=== PATIENT | male | born 1950 | race Caucasian/White ===

== ENCOUNTER → 2017-04-14 | Outpatient (CLI) | payer MEDICARE, OTHER | END | disposition home or self-care (01) | LOC: GMAH 10:03 | PROVIDERS: ATTEND Family Medicine | DX: Z12.5 Encounter for screening for malignant neoplasm of prostate (principal); E78.2 Mixed hyperlipidemia | CPT/HCPCS: 84443; 84550; G0103 ==

== ENCOUNTER → 2017-10-13 | Outpatient (CLI) | payer MEDICARE, OTHER | END | disposition home or self-care (01) | LOC: GMAH 10:51 | PROVIDERS: ATTEND Family Medicine | DX: Z12.5 Encounter for screening for malignant neoplasm of prostate (principal) ==

== ENCOUNTER → 2018-08-03 | Outpatient (CLI) | payer MEDICARE, OTHER | LOC: GMAH 11:00 | PROVIDERS: ATTEND Family Medicine | DX: I10 Essential (primary) hypertension (principal); E78.2 Mixed hyperlipidemia; Z12.5 Encounter for screening for malignant neoplasm of prostate | CPT/HCPCS: 84443; 84550; G0103 ==

== ENCOUNTER → 2018-09-02 | Outpatient (CLI) | payer MEDICARE, OTHER ==
--- NOTE | 2018-09-02 12:53 | CT ---
EXAM DESCRIPTION: CTA Runoff: Computed Tomography. CLINICAL HISTORY: ESSENTIAL HYPERTENSION. Bilateral cold sensation in feet and numbness, right more than left. COMPARISON: Ultrasound carotid duplex examination December 2014. CT scan of the abdomen February 2007. TECHNIQUE: CT angiography of the abdominal aorta and both lower extremities is performed during rapid bolus administration of IV contrast media. Three-dimensional volume-rendering imaging is reviewed along with 2.5 x 2.5 mm source images, and 2 x 2 mm coronal and sagittal reformats. Total Exam DLP: 1453.21 mGy-cm. This exam was performed according to our departmental CT dose-optimization program which includes automated exposure control, adjustment of the mA and/or kV according to patient size and/or use of iterative reconstruction technique; to reduce radiation dose to as low as reasonably achievable (ALARA). FINDINGS: Upper abdominal aorta: Minimal atherosclerotic calcification of the ostia of the celiac trunk with no poststenotic dilation. Minimal calcification in the splenic artery. Origin of the SMA is unremarkable. Mid-abdominal aorta: Bilateral single renal arteries with minimal calcification of the ostia. No poststenotic dilation. Distal abdominal aorta: A second channel may be beginning to form on the anterior right aspect including the origin of the KARLA which contains calcific contrast. Overall with the aorta is 2.3 cm at this level with the true lumen 1.4 cm. Intimal wall thickening from the intrarenal segment to this segment. No para-aortic mass. Common iliacs: Bilateral intimal wall thickening and atherosclerotic calcification predominantly on the right with minimal narrowing of the lumen and moderate caliber 11 mm. Bilateral atherosclerotic calcification at the bifurcation. Internal iliacs: Atherosclerotic calcification proximally with no significant narrowing. EIAs: Bilaterally unremarkable. Right QUANTITATIVE ANALYST MARKETING: Minimal atherosclerotic calcification and intimal wall thickening. Bilateral SFAs: Bilaterally unremarkable except for small atherosclerotic narrowing of the right vessel at the junction of the middle and distal third. Moderate narrowing and more calcification on the left at the junction of the middle and distal third. Popliteals: Unremarkable. Bilateral trifurcation vessels: Good runoff into the proximal vessels bilaterally and fair-good runoff of the bilateral posterior tibial arteries in the foot and ankle bilaterally. Bilateral peroneal arteries terminate at the usual level just above the ankle mortise. Left QUANTITATIVE ANALYST MARKETING: Focal region of moderate atherosclerotic calcification and narrowing. Other: Possible fatty liver and minimal enlargement. Minimal colonic constipation throughout the entire length. Calcifications in the prostate gland, which is impressing on the posterior base of the urinary bladder. IMPRESSION: 1. Scattered atherosclerotic disease from the superior abdominal aorta to the popliteal segment. Possible beginning of a second lumen in the inferior abdominal aorta at the level of the KARLA origin. No obstruction or aneurysm, or contrast extravasation or soft tissue mass. Fair to good runoff of contrast bilaterally into the dorsum and plantar surfaces of the proximal feet. No significant atherosclerotic occlusive disease seen on this exam. 2. Possible fatty liver and minimal hepatomegaly. Minimal colonic obstipation throughout the entire length. Calcifications and enlargement of the prostate gland which is impressing on the urinary bladder. Electronically signed by: Rick Grey MD 09/02/2018 12:51 PM PULMONOLOGIST INTENSIVIST
== END ==
LOC: CT 08:00
PROVIDERS: ATTEND Family Medicine
DX: I10 Essential (primary) hypertension (principal); E78.2 Mixed hyperlipidemia; E11.9 Type 2 diabetes mellitus without complications; R68.89 Other general symptoms and signs; I70.0 Atherosclerosis of aorta; N40.0 Benign prostatic hyperplasia without lower urinary tract symptoms

== ENCOUNTER 2018-12-31 16:38 | Emergency (ER) | payer MEDICARE, OTHER ==
[2018-12-31] MEDS ORDERED: ASPIRIN TABLET 325 MG TAB ONE (16:43)
[2018-12-31 16:49] VITALS: TEMP 97.9
[2018-12-31] MEDS ORDERED: NITROGLYCERIN 0.4 MG 25 EA TAB SL ONE ×2 (16:50→16:52)
[2018-12-31] MEDS ORDERED: ASPIRIN (ENTERIC COATED) 325 MG TAB PO ONE (16:50)
[2018-12-31] MEDS ORDERED: MORPHINE SULFATE INJ 10 MG/ML VIAL IV ONE (16:56)
--- NOTE | 2018-12-31 17:14 | RAD ---
EXAM DESCRIPTION: Chest,1 View CLINICAL HISTORY: chest pain with activity COMPARISON: 04 August 2007 TECHNIQUE: AP portable chest FINDINGS: The lungs are clear. There is no infiltrate or effusion. The heart is normal size. IMPRESSION: Normal portable chest Electronically signed by: Brian De Jesus MD 12/31/2018 5:11 PM CDT
[2018-12-31] MEDS ORDERED: METOPROLOL TARTRATE 50 MG TAB PO ONE (17:15)
[2018-12-31] MEDS ORDERED: NITROGLYCERIN/D5W IV 250 ML IVS ONE (17:24)
[2018-12-31] MEDS ORDERED: NITROGLYCERIN/D5W IV 50,000 MCG in PREMIX BOTTLE 1 BOTTLE IVS SCH (17:30)
[2018-12-31] MEDS ORDERED: ENOXAPARIN SODIUM 100 MG/ML SYG SUBCU ONE (17:36)
--- NOTE | 2018-12-31 18:15 | ED.PDOC ---
History of Present Illness - General Chief Complaint: Chest Pain/AR Stated Complaint: chest pain Time Seen by Provider: 12/31/18 16:42 Source: patient Exam Limitations: no limitations - History of Present Illness Initial Comments: The patient is a 68-year-old male presenting to emergency room secondary to severe chest pain with any aerobic activity this morning. Going back over the patient's history over the past few months it is likely that he has had some angina with aerobic activity over the last few months just much less severe. No definite history of any coronary artery disease but he does have a history of hypertension. He reports taking his medications. Systolic blood pressures are in the 220s upon arrival here. It takes about 10 minutes of rest before his chest pain resolves. Chest pain has come and gone all day pending on his activity level. He was mildly diaphoretic when I saw him. Lungs are clear. No chest wall tenderness to palpation and no reflux symptoms. Timing/Duration: other - 8 hours intermittent Severity: severe Improving Factors: rest Worsening Factors: other - aerobic activity Associated Symptoms: chest pain, shortness of breath Allergies/Adverse Reactions: Allergies Codeine Allergy (Verified 06/14/16 11:19) Dopamine Allergy (Verified 12/31/18 16:49) Home Medications: Ambulatory Orders Aspirin [Aspirin Childrens] 81 mg PO BEDTIME 06/14/16 Cinnamon 1,000 mg PO BEDTIME 06/14/16 Coenzyme O41-Kcojywb E [Coq10 St-100 100-100 mg-Unit] 1 cap PO DAILY 06/14/16 Gemfibrozil 600 mg PO BID 06/14/16 Losartan Potassium 50 mg PO BID 06/14/16 Metformin HCl 500 mg PO BID 06/14/16 Metoprolol Succinate [Metoprolol Succinate ER] 50 mg PO BID 06/14/16 Omeprazole 10 mg PO MITZY-OTH-DAY 06/14/16 Simvastatin 20 mg PO BEDTIME 06/14/16 Tamsulosin [Flomax] 0.4 mg PO BEDTIME 06/14/16 Amlodipine Besylate 10 mg PO DAILY 12/31/18 Glucosamine-Chondroitin [Osteo Bi-Flex Regular Str 250-200 mg] 1 tab PO BID 12/31/18 Multiple Vitamins W/ Minerals [One-A-Day Proactive 65+] 1 tab PO BID 12/31/18 Review of Systems - Review of Systems Constitutional: States: no symptoms reported EENTM: States: no symptoms reported Respiratory: States: short of breath Cardiology: States: chest pain Gastrointestinal/Abdominal: States: no symptoms reported Genitourinary: States: no symptoms reported Musculoskeletal: States: no symptoms reported Skin: States: no symptoms reported Neurological: States: no symptoms reported Endocrine: States: no symptoms reported All other Systems: No Change from Baseline Past Medical History (General) - Patient Medical History Hx Stroke: No Hx Congestive Heart Failure: No Hx Hypertension: Yes Hx Diabetes: Yes Hx MRSA: No Surgical History: cholecystectomy - Vaccination History Hx Influenza Vaccination: No Hx Pneumococcal Vaccination: Yes - Social History Hx Tobacco Use: Yes Family Medical History - Family History Father Family History: Unknown Living Status: Cause of : Mulitple Myeloma Hx Family Cancer: Yes Hx Family;Other: Mom with Lung CA Physical Exam - Physical Exam General Appearance: Alert, Anxious, Other - diaphoretic initially Eye Exam: bilateral normal Ears, Nose, Throat: hearing grossly normal, normal ENT inspection Neck: full range of motion, supple Respiratory: lungs clear, normal breath sounds, no respiratory distress, no accessory muscle use Cardiovascular/Chest: normal peripheral pulses, regular rate, rhythm, no edema Peripheral Pulses: radial,right: 2+, radial,left: 2+, dorsalis pedis,right: 2+, dorsalis pedis,left: 2+ Gastrointestinal/Abdominal: non tender, soft Rectal Exam: deferred Back Exam: no CVA tenderness, no vertebral tenderness Extremity: non-tender, normal inspection, no pedal edema, normal capillary refill 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 tested, alert, normal mood/affect, oriented x 3 Skin Exam: normal color, diaphoresis Comments: Vital Signs - 24 hr 12/31/18 12/31/18 12/31/18 16:45 16:58 16:59 Temperature 97.9 F Pulse Rate 75 Pulse Rate [ 75 75 Left Brachial] Respiratory 20 Rate Blood Pressure 219/98 [Left Arm] O2 Sat by Pulse 99 Oximetry 12/31/18 17:44 Temperature Pulse Rate Pulse Rate [ 67 Left Brachial] Respiratory 16 Rate Blood Pressure 169/77 [Left Arm] O2 Sat by Pulse 98 Oximetry Progress - Progress Progress: 12/31/18 18:18 the patient is a 68-year-old male presenting with what appears to be unstable angina and hypertensive emergency. Initial troponin is not elevated. EKG does not show definitive ST segment changes. The patient has responded well to metoprolol and nitroglycerin as far as reducing his chest pain and blood pressure. He is resting fairly comfortably at this point. He did receive a dose of Lovenox and aspirin. For now I'm going to hold on the Plavix. 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 Acceptance is appreciated. Critical care time for unstable angina and hypertensive emergency excluding otherwise Billable procedures is 40 minutes. - Results/Orders Results/Orders: EKG shows normal sinus rhythm at 81 bpm.normal axis. Normal QT interval. I believe the leads V2 and V3 are reversed. He does appear to have a right bundle branch block. There is possibly a Q-wave in lead 3. No definitive ST segment or T-wave changes. Chest x-ray appears benign. Laboratory Results - last 24 hr 12/31/18 12/31/18 12/31/18 16:52 16:52 16:52 WBC 5.1 RBC 4.55 L Hgb 14.0 Hct 40.2 L MCV 88.2 MCH 30.8 MCHC 35.0 RDW 13.8 Plt Count 249 MPV 8.7 Absolute Neuts (auto) 2.80 Absolute Lymphs (auto) 1.70 Absolute Monos (auto) 0.40 Absolute Eos (auto) 0.20 Absolute Basos (auto) 0.10 Neutrophils % 54.1 Lymphocytes % 33.8 Monocytes % 7.3 Eosinophils % 3.0 Basophils % 1.8 PT 10.5 INR 1.05 PTT (SP) 24.7 Sodium 139 Potassium 3.6 Chloride 108 Carbon Dioxide 18 L Anion Gap 16.6 BUN 17 Creatinine 0.76 BUN/Creatinine Ratio 22.4 H Random Glucose 110 H Serum Osmolality 279.7 Calcium 9.1 Total Bilirubin 0.6 AST 27 ALT 34 Alkaline Phosphatase 60 Creatine Kinase 236 H* CK-MB (CK-2) 4.2 CK-MB (CK-2) % 1.78 Troponin I < 0.02 B-Natriuretic Peptide 28.1 Serum Total Protein 7.8 Albumin 4.4 Globulin 3.4 Albumin/Globulin Ratio 1.3 Departure - Departure Clinical Impression: Hypertensive emergency, Unstable angina Disposition: Transfer to Hospital Condition: Serious Departure Forms: ED Discharge - Pt. Copy, Patient Portal Self Enrollment Referrals: Gio Ellis MD [Primary Care Provider] - 1-2 Weeks Home Medications: Ambulatory Orders Aspirin [Aspirin Childrens] 81 mg PO BEDTIME 06/14/16 Cinnamon 1,000 mg PO BEDTIME 06/14/16 Coenzyme D97-[id number] E [Coq10 St-100 100-100 mg-Unit] 1 cap PO DAILY 06/14/16 Gemfibrozil 600 mg PO BID 06/14/16 Losartan Potassium 50 mg PO BID 06/14/16 Metformin HCl 500 mg PO BID 06/14/16 Metoprolol Succinate [Metoprolol Succinate ER] 50 mg PO BID 06/14/16 Omeprazole 10 mg PO MITZY-OT-DAY 06/14/16 Simvastatin 20 mg PO BEDTIME 06/14/16 Tamsulosin [Flomax] 0.4 mg PO BEDTIME 06/14/16 Amlodipine Besylate 10 mg PO DAILY 12/31/18 Glucosamine-Chondroitin [Osteo Bi-Flex Regular Str 250-200 mg] 1 tab PO BID 12/31/18 Multiple Vitamins W/ Minerals [One-A-Day Proactive 65+] 1 tab PO BID 12/31/18 Transfer to Outside Facility - Transfer Information Accepting Provider:: dr armstrong Accepting Facility: [place] Reason for Transfer: required specialist not available
[2018-12-31 18:44] VITALS: BP 153/66; O2SAT 97
== END 2018-12-31 18:44 | disposition short-term general hospital (02) ==
LOC: ER 16:38
DX: I16.1 Hypertensive emergency (principal); I20.0 Unstable angina; R06.02 Shortness of breath; E11.9 Type 2 diabetes mellitus without complications; Z79.84 Long term (current) use of oral hypoglycemic drugs; Z79.899 Other long term (current) drug therapy; Z87.891 Personal history of nicotine dependence; Z79.82 Long term (current) use of aspirin
CPT/HCPCS: 71045; 80053; 82550; 82553; 83880; 84484; 85025; 85610; 85730; 93005; J1650; J2270

== ENCOUNTER → 2019-03-23 | Outpatient (CLI) | payer MEDICARE, OTHER | LOC: GMAH 10:58 | PROVIDERS: ATTEND Family Medicine | DX: E78.2 Mixed hyperlipidemia (principal); I10 Essential (primary) hypertension ==

== ENCOUNTER 2019-05-09 09:52 | Observation (INO) | payer MEDICARE, OTHER ==
--- NOTE | 2019-05-09 10:13 | ED.PDOC ---
History of Present Illness - General Chief Complaint: Chest Pain/MN Stated Complaint: Chest pain, SOB since Friday Time Seen by Provider: 05/09/19 10:06 Source: patient, family Exam Limitations: no limitations - History of Present Illness Initial Comments: patient comes in today with chest pain that started on Friday. 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 He was told he had 5 vessels were blocked and they repaired 3 of them. Since then he's been doing fairly well with an occasional episode of angina and the last with a did result in transfer with no evidence of blockage or acute MN. This episode started during pulmonary rehabilitation on Friday. Patient states the chest pain has been there pretty consistently since then although intermittently gets worse. Currently he's had this specific pressure-like chest pain since last night before going to bed that kept him up most of the night. Patient states the pain is pressure like at times does radiate to his neck but primarily just stays on his chest is much worse with deep inspiration. He's had some weakness and chills last night but denies any cough, nasal congestion, fever, or sore throat. Patient states this does not feel like his angina prior to his MN and nitroglycerin 2 at home this morning made no difference in the pain. Patient otherwise has a past medical history of hyperlipidemia, hyperthyroidism secondary to atrial fibrillation medication, coronary artery disease, diabetes. Patient has no past history of asthma or emphysema he smokes when he was young man but quit more than 40 years ago. Patient is currently on Plavix since his bypass. Timing/Duration: 7-24 hours Severity/Quality: mild, pressure Location: substernal Chest Pain Radiation: neck Activities at Onset: activity Prior Chest Pain/Cardiac Workup: heart attack Improving Factors: nothing Worsening Factors: other - deep inspiration Nitro Today/Relief: 0.4 mg x 2, provided at home, no relief Aspirin Treatment Today: 325 mg x 1, provided at home Associated Symptoms: fatigue, fever/chills Allergies/Adverse Reactions: Allergies Codeine Allergy (Verified 06/14/16 11:19) Dopamine Allergy (Verified 12/31/18 16:49) Isosorbide Nitrate Allergy (Verified 05/09/19 10:14) Home Medications: Ambulatory Orders Aspirin [Aspirin Childrens] 81 mg PO BEDTIME 06/14/16 Cinnamon 1,000 mg PO BEDTIME 06/14/16 Coenzyme Z22-Perqror E [Coq10 St-100 100-100 mg-Unit] 1 cap PO DAILY 06/14/16 Losartan Potassium 50 mg PO BID 06/14/16 Metformin HCl [Metformin Hydrochloride] 500 mg PO BID 06/14/16 Omeprazole 10 mg PO MITZY-OTH-DAY 06/14/16 Tamsulosin [Flomax] 0.4 mg PO BEDTIME 06/14/16 Glucosamine-Chondroitin [Osteo Bi-Flex Regular Str 250-200 mg] 1 tab PO BID 12/31/18 Multiple Vitamins W/ Minerals [One-A-Day Proactive 65+] 1 tab PO BID 12/31/18 Atorvastatin Calcium 40 mg PO DAILY 05/09/19 Carvedilol 6.25 mg PO BID 05/09/19 Cetirizine-Pseudoephedrine [Zyrtec-D Allergy/Congesti] 1 tab PO BID 05/09/19 Clopidogrel Bisulfate 75 mg PO DAILY 05/09/19 Hydrochlorothiazide 25 mg PO DAILY 05/09/19 Nitroglycerin 0.4 mg Tab [Nitrostat] 0.4 mg SL PRN PRN 05/09/19 Review of Systems - Review of Systems Constitutional: States: chills, weakness. Denies: fever, malaise EENTM: States: no symptoms reported. Denies: blurred vision, ear discharge, nose congestion, throat pain Respiratory: States: short of breath. Denies: cough, wheezing Cardiology: States: chest pain. Denies: edema, palpitations, syncope Gastrointestinal/Abdominal: States: no symptoms reported. Denies: abdominal pain, constipation, diarrhea, nausea, vomiting Genitourinary: States: no symptoms reported Skin: States: no symptoms reported Neurological: States: no symptoms reported Past Medical History (General) - Patient Medical History Hx Stroke: No Hx Congestive Heart Failure: No Hx Hypertension: Yes Hx Diabetes: Yes Hx MRSA: No - Vaccination History Hx Influenza Vaccination: No Hx Pneumococcal Vaccination: Yes - Social History Hx Tobacco Use: Yes Family Medical History - Family History Father Family History: Unknown Living Status: Cause of : Mulitple Myeloma Hx Family Cancer: Yes Hx Family;Other: Mom with Lung CA Physical Exam - Physical Exam General Appearance: Alert, Anxious, No apparent distress Eyes, Ears, Nose, Throat Exam: PERRL/EOMI, normal ENT inspection, TMs normal, pharynx normal Neck: non-tender, full range of motion, supple, normal inspection Respiratory: chest non-tender, lungs clear, normal breath sounds, no respiratory distress, no accessory muscle use Cardiovascular/Chest: normal peripheral pulses, regular rate, rhythm, no edema, no gallop, no JVD Peripheral Pulses: radial,right: 2+, radial,left: 2+ Gastrointestinal/Abdominal: normal bowel sounds, non tender, soft Neurologic: no motor/sensory deficits, alert, oriented x 3 Progress - Progress Progress: 05/09/19 14:01 nitro did not help but much better after toradol and IVF. Atypical chest pain but with history will admit for monitoring. 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 ANITA James and will accept - Results/Orders Results/Orders: 05/09/19 10:15 EKG STAT Laboratory Results WBC 6.9 K/mm3 (4.8-10.8) 05/09/19 10:07 RBC 4.55 M/mm3 (4.70-6.10) L 05/09/19 10:07 Hgb 12.4 gm/dL (14.0-18.0) L 05/09/19 10:07 Hct 37.0 % (42.0-52.0) L 05/09/19 10:07 MCV 81.5 fl (80.0-94.0) 05/09/19 10:07 MCH 27.4 pg (27.0-31.0) 05/09/19 10:07 MCHC 33.6 g/dL (33.0-37.0) 05/09/19 10:07 RDW 16.6 % (11.5-14.5) H 05/09/19 10:07 Plt Count 179 K/mm3 (130-400) 05/09/19 10:07 MPV 8.4 fl (7.40-10.4) 05/09/19 10:07 Absolute Neuts (auto) 5.30 K/uL (1.8-6.8) 05/09/19 10:07 Absolute Lymphs (auto) 0.90 K/uL (1.0-3.4) L 05/09/19 10:07 Absolute Monos (auto) 0.50 K/uL (0.2-0.8) 05/09/19 10:07 Absolute Eos (auto) 0.10 K/uL (0.0-0.4) 05/09/19 10:07 Absolute Basos (auto) 0.10 K/uL (0.0-0.1) 05/09/19 10:07 Neutrophils % 77.1 % (42.0-78.0) 05/09/19 10:07 Lymphocytes % 12.5 % (20.0-50.0) L 05/09/19 10:07 Monocytes % 7.7 % (2.0-9.0) 05/09/19 10:07 Eosinophils % 1.8 % (1.0-5.0) 05/09/19 10:07 Basophils % 0.9 % (0.0-2.0) 05/09/19 10:07 D-Dimer, Quantitative 0.48 mg/L FEU (0-0.49) 05/09/19 10:21 Sodium 138 mmol/L (135-145) 05/09/19 10:21 Potassium 3.7 mmol/L (3.6-5.0) 05/09/19 10:21 Chloride 105 mmol/L (101-111) 05/09/19 10:21 Carbon Dioxide 22 mmol/L (21-31) 05/09/19 10:21 Anion Gap 14.7 (12-18) 05/09/19 10:21 BUN 20 mg/dL (7-18) H 05/09/19 10:21 Creatinine 0.97 mg/dL (0.6-1.3) 05/09/19 10:21 BUN/Creatinine Ratio 20.6 (10-20) H 05/09/19 10:21 Random Glucose 162 mg/dL (70-105) H 05/09/19 10:21 Serum Osmolality 281.8 mOsm/L (275-295) 05/09/19 10:21 Lactic Acid 1.6 mmol/L (0.5-2.2) 05/09/19 13:18 Calcium 8.8 mg/dL (8.4-10.2) 05/09/19 10:21 Magnesium 1.9 mg/dL (1.8-2.5) 05/09/19 10:21 Total Bilirubin 0.8 mg/dL (0.2-1.0) 05/09/19 10:21 AST 22 IU/L (10-42) 05/09/19 10:21 ALT 20 IU/L (10-60) 05/09/19 10:21 Alkaline Phosphatase 73 IU/L (42-121) 05/09/19 10:21 Creatine Kinase 119 IU/L (38-174) 05/09/19 10:21 CK-MB (CK-2) 2.3 ng/mL (0.0-4.4) 05/09/19 10:21 CK-MB (CK-2) % Not Reportable 05/09/19 10:21 Troponin I < 0.02 ng/mL (0.01-0.05) 05/09/19 13:18 Serum Total Protein 6.7 gm/dL (6.4-8.2) 05/09/19 10:21 Albumin 3.8 g/dl (3.2-5.5) 05/09/19 10:21 Globulin 2.9 gm/dL (2.3-3.5) 05/09/19 10:21 Albumin/Globulin Ratio 1.3 (1.1-1.9) 05/09/19 10:21 TSH 30.10 uIU/mL (0.34-5.60) H 05/09/19 10:21 Urine Color Yellow (Yellow) 05/09/19 12:20 Urine Appearance Clear (Clear) 05/09/19 12:20 Urine pH 6.0 (4.5-7.8) 05/09/19 12:20 Ur Specific [place] 1.020 (1.005-1.030) 05/09/19 12:20 Urine Protein Negative mg/dL 05/09/19 12:20 Urine Glucose (UA) Negative mg/dL (Negative) 05/09/19 12:20 Urine Ketones Negative mg/dL (NEGATIVE) 05/09/19 12:20 Urine Blood Negative (Negative) 05/09/19 12:20 Urine Nitrite Negative 05/09/19 12:20 Urine Bilirubin Negative (NEGATIVE) 05/09/19 12:20 Urine Urobilinogen 0.2 mg/dL (0.2-1.0) 05/09/19 12:20 Ur Leukocyte Esterase Negative (Negative) 05/09/19 12:20 Urine RBC 0 /hpf 05/09/19 12:20 Urine WBC 0 /hpf 05/09/19 12:20 Ur Epithelial Cells 0 /hpf 05/09/19 12:20 Urine Bacteria 0 05/09/19 12:20 Patient Name: ZACKERY CHAUDHARI Gender: Male Date of : 1950 Referring Physician: THOMAS SANCHEZ Organization: [facility] Accession Number: [id number] Requested Date: May 09, 2019 10:07 Report Status: Final Requested Procedure: 1 Procedure Description: Chest,1 View Modality: CR Findings Reporting MD: Tracey Solano MD: Not available Dictation Time: Scrap Sawyer: Not available [employer] Testing Supervisor Date: EXAM: XR Chest, 1 View CLINICAL HISTORY: chest pain with inspiration TECHNIQUE: Frontal view of the chest. COMPARISON: 12/31/2018. FINDINGS: Limitations: None. Lungs: Unremarkable. No consolidation. Pleural space: Unremarkable. No pneumothorax. Heart: Stable cardiomegaly. Mediastinum: Unremarkable. Bones/joints: Unremarkable. IMPRESSION: No acute findings. - EKG/XRAY/CT EKG: Sinus, no ST T wave changes, Abnormal Q waves, Unchanged from - 12/31/18 Comments: HR 81 Departure - Departure Clinical Impression: Chest pain Qualifiers: Chest pain type: other chest pain Qualified Code(s): R07.89 - Other chest pain; R07.8 - Other chest pain Disposition: Admit Patient Condition: Good Departure Forms: ED Discharge - Pt. Copy, Patient Portal Self Enrollment Instructions: DI for Chest Pain Referrals: Gio Ellis MD [Primary Care Provider] - 1-2 Weeks Home Medications: Ambulatory Orders Aspirin [Aspirin Childrens] 81 mg PO BEDTIME 06/14/16 Cinnamon 1,000 mg PO BEDTIME 06/14/16 Coenzyme X24-Gayiwqb E [Coq10 St-100 100-100 mg-Unit] 1 cap PO DAILY 06/14/16 Losartan Potassium 50 mg PO BID 06/14/16 Metformin HCl [Metformin Hydrochloride] 500 mg PO BID 06/14/16 Omeprazole 10 mg PO MITZY-OTH-DAY 06/14/16 Tamsulosin [Flomax] 0.4 mg PO BEDTIME 06/14/16 Glucosamine-Chondroitin [Osteo Bi-Flex Regular Str 250-200 mg] 1 tab PO BID 12/31/18 Multiple Vitamins W/ Minerals [One-A-Day Proactive 65+] 1 tab PO BID 12/31/18 Atorvastatin Calcium 40 mg PO DAILY 05/09/19 Carvedilol 6.25 mg PO BID 05/09/19 Cetirizine-Pseudoephedrine [Zyrtec-D Allergy/Congesti] 1 tab PO BID 05/09/19 Clopidogrel Bisulfate 75 mg PO DAILY 05/09/19 Hydrochlorothiazide 25 mg PO DAILY 05/09/19 Nitroglycerin 0.4 mg Tab [Nitrostat] 0.4 mg SL PRN PRN 05/09/19 Decision To Admit - Decistion To Admit Decision to Admit Reason: Admit from ER Decision to Admit Date: 05/09/19 Decision to Admit Time: 14:03
--- NOTE | 2019-05-09 10:46 | RAD ---
EXAM: XR Chest, 1 View CLINICAL HISTORY: chest pain with inspiration TECHNIQUE: Frontal view of the chest. COMPARISON: 12/31/2018. FINDINGS: Limitations: None. Lungs: Unremarkable. No consolidation. Pleural space: Unremarkable. No pneumothorax. Heart: Stable cardiomegaly. Mediastinum: Unremarkable. Bones/joints: Unremarkable. IMPRESSION: No acute findings. Electronically signed by: Tracey Solano MD 05/09/2019 10:45 AM CDT
[2019-05-09] MEDS ORDERED: KETOROLAC TROMETHAMINE INJ 30 MG/ML VIAL IV ONE (10:52)
[2019-05-09] MEDS ORDERED: NITROGLYCERIN 0.4 MG 25 EA TAB SL ONE ×2 (10:59→11:02)
[2019-05-09] MEDS ORDERED: SODIUM CHLORIDE 0.9% 1000ML 1,000 ML IVS ONE (11:27)
[2019-05-09] MEDS ORDERED: NITROGLYCERIN 0.4 MG 25 EA TAB SL PRN (15:43)
[2019-05-09] MEDS ORDERED: SODIUM CHLORIDE 0.9% (FLUSH) 10 ML SYG IV PRN (15:43)
[2019-05-09] MEDS ORDERED: ACETAMINOPHEN 325 MG TAB PO PRN (15:43)
[2019-05-09] MEDS ORDERED: GLUCAGON INJ 1 MG VIAL SUBCU PRN (15:49)
[2019-05-09] MEDS ORDERED: DEXTROSE 50% 25 GM/50 ML SYG IV PRN (15:49)
[2019-05-09] MEDS ORDERED: IV SET AND CAP CHANGE INJ INJ SCH (16:00)
[2019-05-09] MEDS: INSULIN LISPRO 100 UNITS/ML PEN SUBCU SCH ×2 (16:40→21:13)
[2019-05-09] MEDS: metFORMIN HCL 500 MG TAB PO SCH (16:55)
[2019-05-09] MEDS: MORPHINE SULFATE INJ 10 MG/ML VIAL IV PRN ×2 (16:55→21:56)
[2019-05-09] MEDS ORDERED: LEVOTHYROXINE SODIUM 0.075 MG TAB ONE (19:35)
[2019-05-09] MEDS ORDERED: PANTOPRAZOLE SODIUM TAB 40 MG PO ONE (19:35)
[2019-05-09] MEDS: CARVEDILOL 3.125 MG TAB PO SCH (20:24)
[2019-05-09] MEDS: LOSARTAN POTASSIUM 25 MG TAB PO SCH (20:24)
[2019-05-09] MEDS: SODIUM CHLORIDE 0.9% (FLUSH) 10 ML SYG IV SCH (20:26)
[2019-05-09] MEDS ORDERED: TAMSULOSIN 0.4 MG CAP PO SCH (21:00)
[2019-05-09] MEDS ORDERED: ENOXAPARIN SODIUM 40 MG/0.4 ML SYG SUBCU SCH (21:00)
[2019-05-09] MEDS ORDERED: ASPIRIN (CHEWABLE) 81 MG TAB PO SCH (21:00)
[2019-05-09] MEDS ORDERED: ATORVASTATIN 20 MG TAB PO SCH (21:00)
[2019-05-10] MEDS: MORPHINE SULFATE INJ 10 MG/ML VIAL IV PRN (02:49)
[2019-05-10] MEDS ORDERED: PANTOPRAZOLE SODIUM TAB 40 MG PO SCH (06:30)
[2019-05-10] MEDS ORDERED: LEVOTHYROXINE SODIUM 0.075 MG TAB PO SCH (06:30)
[2019-05-10] MEDS ORDERED: CLOPIDOGREL 75 MG TAB ONE (06:57)
[2019-05-10] MEDS ORDERED: hydroCHLOROthiazide 25 MG TAB ONE (06:57)
[2019-05-10] MEDS: INSULIN LISPRO 100 UNITS/ML PEN SUBCU SCH (07:12)
[2019-05-10] MEDS: metFORMIN HCL 500 MG TAB PO SCH (07:12)
--- NOTE | 2019-05-10 07:15 | RAD ---
EXAM: XR Chest, 2 Views CLINICAL HISTORY: cp TECHNIQUE: Frontal and lateral views of the chest. COMPARISON: 05/09/2019. FINDINGS: Limitations: None. Lungs: There is increased basilar atelectasis. Pleural space: There is a new small left pleural effusion. No pneumothorax. Heart: Stable cardiac enlargement. Mediastinum: Unremarkable. Bones/joints: Unremarkable. IMPRESSION: New small left pleural effusion and increased basilar atelectasis. Electronically signed by: Tracey Solano MD 05/10/2019 7:14 AM CDT
[2019-05-10] MEDS ORDERED: CLOPIDOGREL 75 MG TAB PO SCH (09:00)
[2019-05-10] MEDS ORDERED: hydroCHLOROthiazide 25 MG TAB PO SCH (09:00)
[2019-05-10] MEDS: CARVEDILOL 3.125 MG TAB PO SCH (09:19)
[2019-05-10] MEDS: LOSARTAN POTASSIUM 25 MG TAB PO SCH (09:20)
[2019-05-10] MEDS: SODIUM CHLORIDE 0.9% (FLUSH) 10 ML SYG IV SCH (09:22)
--- NOTE | 2019-05-10 10:22 | SSS ---
SUPERVISING PHYSICIAN: Devang Garay MD DISCHARGE DIAGNOSIS: 1. Chest pain, rule out acute coronary syndrome. His serial cardiac enzymes have been negative. 2. Recent history of coronary artery bypass graft in 02/07. 3. History of atrial fibrillation, previously on amiodarone, now only on Coreg. 4. Hypothyroidism with TSH greater than 30. His chief enterprise architect has been watching his thyroid function for about 2 months as his low thyroid may be due to some medications he received for atrial fibrillation approximately 2 months ago. 5. Coronary artery disease. 6. Diabetes mellitus, type 2. 7. Hypertension. 8. Hyperlipidemia. HISTORY OF PRESENT ILLNESS: This is a 68-year-old male patient who had a coronary artery bypass graft in January of 2019. It was a 3-vessel CABG. He has been doing fairly well since his surgery, but over the last week or so, he has been having some angina like symptoms. He was in cardiac rehab on Friday and although he completed his therapy, he said he had some chest pain that was pressure like and it has been getting intermittently worse. He took 2 nitroglycerin at home that did not help. Once he came to the Emergency Room, he received another nitroglycerin. It did not help. He did receive some Toradol and it relieved the pain somewhat. His initial vital signs showed a temperature of 99.4 with a heart rate of 85, blood pressure 176/80, respiratory rate 18, O2 saturation 97% on room air. His labs were completed and WBCs were 6,900 with hemoglobin 12.4, hematocrit 37. There was no left shift on differential. D- dimer was negative. Electrolytes were basically within normal limits. BUN slightly high at 20, but his lactic acid was 2.5. Liver enzymes were basically within normal limits. TSH was high at 30.1. His initial set of cardiac enzymes were also negative. His 2-hour followup troponin was less than 0.02. Chest x- ray showed no acute findings. He was given some fluids as well as some Protonix. His followup lactic acid after fluids was 1.6. I was called for hospital admission. PAST MEDICAL HISTORY: 1. Hypertension. 2. Hyperlipidemia. 3. Diabetes mellitus, type 2, on oral medications. 4. Coronary artery disease. 5. History of atrial fibrillation, previously on amiodarone, now only on Coreg. PAST SURGICAL HISTORY: 1. Cholecystectomy . 2. Bilateral carotid endarterectomies. 3. Three-vessel coronary artery bypass graft in January of 2019. OUTPATIENT MEDICATIONS: 1. Cetirizine-pseudoephedrine. 2. Cinnamon. 3. CoEnzyme Q10. 4. Glucosamine and chondroitin. 5. Multivitamins with minerals. 6. Nitroglycerin tabs. 7. Omeprazole. 8. Aspirin. 9. Atorvastatin. 10. Carvedilol. 11. Plavix. 12. Hydrochlorothiazide. 13. Losartan. 14. Metformin. 15. Tamsulosin. ALLERGIES: CODEINE, DOPAMINE, ISOSORBIDE NITRITE. SOCIAL HISTORY: He is . He lives in [place]. He quit smoking in 1977. He drinks alcohol only rarely. He denies any illicit drug use. REVIEW OF SYSTEMS: GENERAL: Denies fever, fatigue or weight changes. HEENT: Denies sinus symptoms, ear pain, vision changes or sore throat. RESPIRATORY: Positive for shortness of breath. Denies coughing or wheezing. CARDIAC: Positive for chest pain. Negative for palpitations or tachycardia. GASTROINTESTINAL: Negative for nausea, vomiting, diarrhea, constipation or abdominal pain. GENITOURINARY: Negative for hematuria, dysuria or polyuria. SKIN: Negative for lesions or rashes. NEUROLOGIC: Negative for headache, dizziness or seizures. PHYSICAL EXAMINATION: VITAL SIGNS: Temperature 98.5. Heart rate 75. Blood pressure 135/69. Respiratory rate 16. O2 saturation 91% on room air. GENERAL: This is a 68-year-old male the patient who is lying in his hospital bed. He is in no acute distress. HEENT: Normocephalic, atraumatic. Pupils are equal and reactive. Oropharynx is clear. NECK: Supple without mass. No discernible jugular venous distention. RESPIRATORY: Essentially clear to auscultation bilaterally. CHEST: There is equal rise and fall of the chest with inspiration and expiration. CARDIOVASCULAR: Regular rate and rhythm. Sinus rhythm on the scroll assembler. GASTROINTESTINAL: Abdomen is soft, rounded, but nondistended, nontender. Bowel sounds are positive. EXTREMITIES: No cyanosis, clubbing or edema. SKIN: Warm and dry. NEUROLOGIC: Alert and oriented times three. Cranial nerves II-XII are grossly intact. LABORATORY: Followup shows WBC 7,500, hemoglobin 11.1, hematocrit 33. Electrolytes are within normal limits. This morning, his glucose has been running between 110 and 199. Triglycerides 64, LDL 77.2, HDL 33. RADIOLOGY: His morning chest x-ray shows a new small left pleural effusion and increased basilar atelectasis. All other labs and films have been reviewed via the EMR. HOSPITAL COURSE: The patient was placed in observation overnight. He did have one bout of chest pain that was relieved with some Tylenol. We discussed his discharge plan and that he would need to followup with Dr. Jules as well as his chief enterprise architect, Dr. Otero. He agreed with that. Other than the one incident of chest pain that was relieved with Tylenol, there have been no further complaints of chest pain, nausea, vomiting or diaphoresis. His cardiac enzymes have been negative. He will be discharged home today with close followup with Dr. Jules. DISCHARGE PLAN: the patient will be discharged home today in stable condition. Prior to discharge, we will have an echocardiogram done and will most likely need to be reviewed at his followup appointment with Dr. Jules. I have given his copies of his lab work and at this point I am not putting him on any medications for his low thyroid as Dr. Otero, his chief enterprise architect, is following that. It is also recommended that he followup with his chief enterprise architect as soon as possible due to this ongoing chest pain. He does not have an appointment with Dr. Otero until May. He has been going to cardiac rehab on [id number] at [address] and he will see Dr. Jules on Friday at 8:[address] Jules and the patient can decide if he should continue with his rehab prior to seeing his chief enterprise architect. He is to resume his previous medications and he is to call Dr. Jules, Dr. Otero, the chief enterprise architect, or return to the Emergency Room for any problems or complications. DISCHARGE MEDICATIONS: 1. Flomax. 2. Losartan. 3. Metformin. 4. CoEnzyme Q10. 5. Cinnamon. 6. Omeprazole. 7. Aspirin. 8. Multivitamin. 9. Glucosamine. 10. Plavix. 11. Atorvastatin. 12. Nitroglycerin. 13. Hydrochlorothiazide. 14. Carvedilol. 15. Cetirizine-pseudoephedrine. #[id number] [facility]
[2019-05-10 10:43] VITALS: BP 154/71; TEMP 97.9; O2SAT 94
== END 2019-05-10 10:47 | disposition home or self-care (01) ==
LOC: ER 09:52 → MS 14:21
PROVIDERS: ADMIT Nurse Practitioner Acute Care; ATTEND Nurse Practitioner Acute Care
DX: R07.89 Other chest pain (principal); I48.91 Unspecified atrial fibrillation; E03.9 Hypothyroidism, unspecified; I25.10 Atherosclerotic heart disease of native coronary artery without angina pectoris; E11.9 Type 2 diabetes mellitus without complications; I10 Essential (primary) hypertension; E78.5 Hyperlipidemia, unspecified; J90 Pleural effusion, not elsewhere classified; J98.11 Atelectasis; I36.1 Nonrheumatic tricuspid (valve) insufficiency; I34.0 Nonrheumatic mitral (valve) insufficiency; I37.1 Nonrheumatic pulmonary valve insufficiency; Z95.1 Presence of aortocoronary bypass graft; Z79.02 Long term (current) use of antithrombotics/antiplatelets; Z79.84 Long term (current) use of oral hypoglycemic drugs; Z79.82 Long term (current) use of aspirin; Z79.899 Other long term (current) drug therapy; Z88.6 Allergy status to analgesic agent; Z88.8 Allergy status to other drugs, medicaments and biological substances; Z87.891 Personal history of nicotine dependence; Z90.49 Acquired absence of other specified parts of digestive tract; Z80.1 Family history of malignant neoplasm of trachea, bronchus and lung; Z80.7 Family history of other malignant neoplasms of lymphoid, hematopoietic and related tissues
CPT/HCPCS: 96374; 96375; 96376 ×2; 96372; J1885; J2270 ×3; J7030; J1815; 85379; 82553 ×3; 80053 ×2; 82948 ×3; 80061; 36415 ×3; 81001; 85025 ×2; 82550 ×3; 83735 ×2; 84443; 84484 ×4; 36416; 83605 ×2; 71045; 71046; 94760 ×2; 99285; 93306; 93005 ×3; G0378

== ENCOUNTER → 2019-05-12 | Outpatient (CLI) | payer MEDICARE, OTHER | LOC: GMA MATASK 10:34 | PROVIDERS: ATTEND Family Medicine | DX: E03.2 Hypothyroidism due to medicaments and other exogenous substances (principal); I10 Essential (primary) hypertension ==

== ENCOUNTER → 2019-06-23 | Outpatient (CLI) | payer MEDICARE, OTHER | LOC: GMA MATASK 11:03 | PROVIDERS: ATTEND Family Medicine | DX: E03.2 Hypothyroidism due to medicaments and other exogenous substances (principal) ==

== ENCOUNTER → 2019-08-17 | Outpatient (CLI) | payer MEDICARE, OTHER | LOC: GMA MATASK 10:21 | PROVIDERS: ATTEND Family Medicine | DX: E03.2 Hypothyroidism due to medicaments and other exogenous substances (principal) ==

== ENCOUNTER → 2020-02-21 | Outpatient (CLI) | payer MEDICARE, OTHER | LOC: GMA MATASK 11:18 | PROVIDERS: ATTEND Family Medicine | DX: E03.2 Hypothyroidism due to medicaments and other exogenous substances (principal); E11.9 Type 2 diabetes mellitus without complications ==

== ENCOUNTER → 2020-06-23 | Outpatient (CLI) | payer MEDICARE, OTHER | LOC: GMA MATASK 10:33 | PROVIDERS: ATTEND Family Medicine | DX: R97.20 Elevated prostate specific antigen [PSA] (principal); I10 Essential (primary) hypertension; E11.9 Type 2 diabetes mellitus without complications ==

== ENCOUNTER → 2020-09-20 | Outpatient (CLI) | payer MEDICARE, OTHER ==
--- NOTE | 2020-09-21 09:12 | CT ---
EXAMS DESCRIPTION: CHEST WITHOUT CONTRAST CT CHEST WITH CONTRAST CLINICAL HISTORY: 69 years, Male, PLEURISY COMPARISON: None TECHNIQUE: Thin-section noncontrast axial CT images are obtained according to our protocol before and after IV contrast administration. Routine adult dose of nonionic iodinated IV contrast was administered. Reconstructed MPR images are created and reviewed as well. FINDINGS: CT chest without contrast Lung window images reveal minimal scarring in the right middle lobe and lingula. Mild subpleural microatelectasis or scarring in the dependent portions of both lungs. Bronchiectasis is prominent in both lower lobes without central obstructing lesion. No consolidating infiltrate, mass or worrisome nodule in the lungs. Surgical clips in the anterior mediastinum. Anterior sternotomy wires are present. In the mediastinum, extensive coronary arterial calcification is present. No mediastinal adenopathy. Normal vascular contours with no aneurysm evident. Prominent fat behind the heart with small hiatal hernia. Some images through the upper abdomen are included. The gallbladder is surgically absent. Mildly decreased density of the liver suggesting mild hepatic steatosis. Otherwise unremarkable upper abdominal viscera. The heart is prominent in size but not grossly enlarged. Bone window images are negative for rib fractures. No bony destructive lesions. In the lower neck, thyroid gland appears normal. No lower cervical or supraclavicular or axillary adenopathy. Small density in the subcutaneous fat of the anterior left chest wall may be skin appendage lesion. This appears benign. CT chest with contrast Normal enhancement of intrathoracic vessels. No aortic aneurysm or dissection. Extensive coronary arterial calcification. Normal enhancement of cardiac chambers. No pericardial effusion. Small hiatal hernia behind the heart. In the upper abdomen, normal enhancement of upper poles of the kidneys, upper portions of liver, spleen and pancreas. No enhancing lesion in the upper portions of liver or pancreas. No focal lesion of the adrenal glands. Lung window images are negative for infiltrate, mass or worrisome nodule. Postoperative changes in the anterior mediastinum and sternum. Coronal and sagittal reformatted images confirm the findings. Sagittal images show intact Sternaman T-spine. IMPRESSION: No acute process is identified in the chest. Bilateral lower lobe bronchiectasis. Small to moderate hiatal hernia. Extensive coronary arterial calcification. This exam was performed according to our departmental dose-optimization program, which includes automated exposure control, adjustment of the mA and/or kV according to patient size and/or use of iterative reconstruction technique. Total DLP equals 1954.11 mGycm. Electronically signed by: Michael Mccloud MD 09/21/2020 9:10 AM [facility]
== END ==
LOC: CT 07:44
PROVIDERS: ATTEND Family Medicine
DX: Z01.812 Encounter for preprocedural laboratory examination (principal); R09.1 Pleurisy; J47.9 Bronchiectasis, uncomplicated; K44.9 Diaphragmatic hernia without obstruction or gangrene; I25.10 Atherosclerotic heart disease of native coronary artery without angina pectoris

== ENCOUNTER → 2020-09-25 | Outpatient (CLI) | payer MEDICARE, OTHER | LOC: GMA MATASK 11:38 | PROVIDERS: ATTEND Family Medicine | DX: R97.20 Elevated prostate specific antigen [PSA] (principal) ==